=== PATIENT | female | born 1980 | race Caucasian/White ===

== ENCOUNTER 2019-10-30 15:32 | Outpatient (RCR) | payer OTHER | END 2019-11-06 | disposition home or self-care (01) | LOC: WCC 15:32 | DX: T86.821 Skin graft (allograft) (autograft) failure (principal); C50.412 Malignant neoplasm of upper-outer quadrant of left female breast; Z90.13 Acquired absence of bilateral breasts and nipples; Z85.3 Personal history of malignant neoplasm of breast ==

== ENCOUNTER 2019-10-30 17:25 | Outpatient (RCR) | payer SELFPAY | END 2019-11-06 | disposition home or self-care (01) | LOC: WCC 17:25 | DX: T86.821 Skin graft (allograft) (autograft) failure (principal); C50.412 Malignant neoplasm of upper-outer quadrant of left female breast; Z90.13 Acquired absence of bilateral breasts and nipples; Z85.3 Personal history of malignant neoplasm of breast ==

== ENCOUNTER 2019-11-07 15:30 | Outpatient (RCR) | payer SELFPAY | END 2019-12-06 | disposition home or self-care (01) | LOC: WCC 15:30 | DX: T86.821 Skin graft (allograft) (autograft) failure (principal); Z90.13 Acquired absence of bilateral breasts and nipples; Z80.3 Family history of malignant neoplasm of breast; Z79.899 Other long term (current) drug therapy | CPT/HCPCS: G0277 ×2 ==

== ENCOUNTER 2019-11-14 14:07 | Outpatient (RCR) | payer OTHER | END 2019-12-06 | disposition home or self-care (01) | LOC: WCC 14:07 | DX: T86.821 Skin graft (allograft) (autograft) failure (principal); Z85.3 Personal history of malignant neoplasm of breast; Z90.13 Acquired absence of bilateral breasts and nipples; Z79.899 Other long term (current) drug therapy ==